=== PATIENT | male | born 1980 ===

== ENCOUNTER 2020-06-14 23:48 | Emergency (ER) | payer SELFPAY ==
[~2020-06-14] VITALS: Ht 182.9 cm; Wt 85.0 kg
[2020-06-15] MEDS ORDERED: IBUPROFEN 600 MG TABLET ONE (00:35)
[2020-06-15 00:55] VITALS: BP 133/77
[2020-06-15] MEDS ORDERED: IBUPROFEN 600 MG TABLET PO ONE (01:00)
== END 2020-06-15 00:57 | disposition home or self-care (01) ==
LOC: ED 23:50
DX: M79.604 Pain in right leg (principal); F17.210 Nicotine dependence, cigarettes, uncomplicated; Z59.0 Homelessness
CPT/HCPCS: 99282

== ENCOUNTER 2020-11-18 23:22 | Emergency (ER) | payer OTHER ==
[~2020-11-18] VITALS: Ht 180.3 cm; Wt 80.0 kg
[2020-11-18 23:25] VITALS: BP 119/79
[2020-11-19] MEDS ORDERED: DIPHENHYDRAMINE 25 MG CAPSULE ONE (00:09)
[2020-11-19] MEDS ORDERED: DIPHENHYDRAMINE 25 MG CAPSULE PO ONE (00:30)
== END 2020-11-19 01:15 | disposition home or self-care (01) ==
LOC: ED 23:45
DX: L50.0 Allergic urticaria (principal); Z87.891 Personal history of nicotine dependence
CPT/HCPCS: 99283; J7512; Q0163